=== PATIENT | male | born 1995 | race Caucasian/White ===

== ENCOUNTER 2017-11-10 17:07 | Outpatient (CLI) ==
[2017-11-10 17:39] LABS: FLU INTERNAL QC INTERNAL QC VALID; RAPID FLU A POSITIVE (NEGATIVE); RAPID FLU B NEGATIVE (NEGATIVE)
== END 2017-11-10 17:08 | disposition home or self-care (01) ==
LOC: LAB 17:07
PROVIDERS: ATTEND Nurse Practitioner Family
DX: R50.9 Fever, unspecified (principal)
CPT/HCPCS: 87651; 87804; 87880